=== PATIENT | female | born 1965 | race Caucasian/White ===

== ENCOUNTER 2016-11-08 10:35 | Outpatient (CLI) | payer OTHER ==
[2016-11-08 11:28] LABS: Anion Gap 14 mmol/L (10-20); BUN (Urea Nitrogen) 13 mg/dL (9.8-20.1); Calc. Creatinine Clearance 0 mL/min (70-130); Calcium 9.4 mg/dL (7.8-10.44); Carbon Dioxide 27 mmol/L (22-29); Chloride 106 mmol/L (98-107); Estimated GFR-MDRD 71; Glucose 95 mg/dL (70-105); Potassium 4.8 mmol/L (3.5-5.1); Sodium 142 mmol/L (136-145)
== END 2016-11-08 10:36 | disposition home or self-care (01) ==
LOC: BURLAB 10:35
PROVIDERS: ATTEND Internal Medicine Cardiovascular Disease
DX: E66.01 Morbid (severe) obesity due to excess calories (principal); I48.1 Persistent atrial fibrillation; I10 Essential (primary) hypertension
CPT/HCPCS: 36415; 80048

== ENCOUNTER 2018-11-29 10:09 | Outpatient (CLI) | payer OTHER ==
--- NOTE | 2018-11-30 08:11 | ULT ---
RIGHT LOWER EXTREMITY VENOUS ULTRASOUND 11/29/18 Color duplex Doppler ultrasonography of the deep veins of the right lower extremity was performed. Al l deep veins were freely compressible from groin to ankle. There was no echogenic clot seen. All vein s were freely compressible and there was normal Doppler responses to augmentation maneuvers. IMPRESSION: No evidence of DVT. POS: HOME
== END 2018-11-29 10:10 | disposition home or self-care (01) ==
LOC: BURULT 10:09
PROVIDERS: ATTEND Nurse Practitioner
DX: I80.9 Phlebitis and thrombophlebitis of unspecified site (principal)

== ENCOUNTER 2025-04-16 17:16 | Emergency (ER) | payer OTHER, SELFPAY ==
[2025-04-16 18:20] LABS: #Basophils 0.1 thou/uL (0.0-0.2); #Eosinophils 0.2 thou/uL (0.0-0.7); #Lymphocytes 1.7 thou/uL (1.20-3.40); #Monocytes 0.3 thou/uL (0.11-0.59); #Neutrophils 2.8 thou/uL (1.40-6.50); %Basophils 2.2 % (0.0-1.0); %Eosinophils 3.0 % (0.0-10.0); %Lymphocytes 34.4 % (21.0-51.0); %Monocytes 5.6 % (0.0-10.0); %Neutrophils 54.9 % (42.0-75.0); Hematocrit 39.2 % (36.0-47.0); Hemoglobin 13.4 g/dL (12.0-16.0); Mean Corpuscular Hemoglobin 30.4 pg (27.0-31.0); Mean Corpuscular Volume 88.6 fl (78.0-98.0); Platelet Count 192 10x3/uL (130-400); Red Blood Cell (RBC) Count 4.42 mill/uL (4.20-5.40); White Blood Cell (WBC) Count 5.1 10x3/uL (4.8-10.8)
[2025-04-16] MEDS ORDERED: hydrALAZINE 20 MG/ML VIAL ONE (18:22)
[2025-04-16] MEDS ORDERED: Mag-Al Plus 1200/1200/120 MG (30 mL) UDCUP ONE (18:22)
[2025-04-16] MEDS ORDERED: Lidocaine Viscous Sol 2% 15 ml UD Cup ONE (18:22)
[2025-04-16 18:31] LABS: ALT (SGPT) 24 U/L (Less than 34); AST (SGOT) 39 U/L (11-34); Albumin 4.5 g/dL (3.1-4.5); Alkaline Phosphatase 48 U/L (40-110); Anion Gap 19 mmol/L (10-20); BUN (Urea Nitrogen) 12 mg/dL (9.8-20.1); Bilirubin, Total 2.0 mg/dL (0.3-1.2); Calc. Creatinine Clearance 0 mL/min (70-130); Calcium 9.6 mg/dL (7.8-10.44); Carbon Dioxide 24 mmol/L (22-29); Chloride 100 mmol/L (98-107); Globulin 2.9 g/dL (2.4-3.5); Glucose 99 mg/dL (70-105); Potassium 3.6 mmol/L (3.5-5.1); Sodium 139 mmol/L (136-145)
[2025-04-16 18:32] LABS: Troponin I Less than 0.010 ng/mL (< 0.028)
[2025-04-16] MEDS ORDERED: Sucralfate 1 GM TAB ONE (20:06)
[2025-04-16] MEDS ORDERED: Pantoprazole 40 MG DR.TAB ONE (20:06)
== END 2025-04-16 20:13 | disposition home or self-care (01) ==
LOC: BURERS 17:16
DX: K27.9 Peptic ulcer, site unspecified, unspecified as acute or chronic, without hemorrhage or perforation (principal); E66.9 Obesity, unspecified; I48.91 Unspecified atrial fibrillation; I10 Essential (primary) hypertension; Z87.891 Personal history of nicotine dependence
CPT/HCPCS: 71045; 80053; 84484; 85025; 93005; 96374; J0360

== ENCOUNTER 2025-04-24 11:01 | Emergency (ER) | payer SELFPAY ==
[~2025-04-24 11:01] MED LIST: Iopamidol 370 76% 100 ML VIAL ONE
[2025-04-24 11:48] LABS: #Basophils 0.0 thou/uL (0.0-0.2); #Eosinophils 0.1 thou/uL (0.0-0.7); #Lymphocytes 1.7 thou/uL (1.20-3.40); #Monocytes 0.0 thou/uL (0.11-0.59); #Neutrophils 4.9 thou/uL (1.40-6.50); %Basophils 0.0 % (0.0-1.0); %Eosinophils 1.5 % (0.0-10.0); %Lymphocytes 25.7 % (21.0-51.0); %Monocytes 0.1 % (0.0-10.0); %Neutrophils 72.7 % (42.0-75.0); Hematocrit 40.2 % (36.0-47.0); Hemoglobin 14.1 g/dL (12.0-16.0); Mean Corpuscular Hemoglobin 30.4 pg (27.0-31.0); Mean Corpuscular Volume 86.6 fl (78.0-98.0); Platelet Count 198 10x3/uL (130-400); Red Blood Cell (RBC) Count 4.64 mill/uL (4.20-5.40); White Blood Cell (WBC) Count 6.7 10x3/uL (4.8-10.8)
[2025-04-24 11:59] LABS: INR-International Normal Ratio 1.1; Prothrombin Time 14.3 sec (12.0-14.7)
[2025-04-24 12:00] LABS: PTT 28.0 sec (22.9-36.1)
[2025-04-24 12:08] LABS: ALT (SGPT) 25 U/L (Less than 34); AST (SGOT) 37 U/L (11-34); Albumin 4.5 g/dL (3.1-4.5); Alkaline Phosphatase 48 U/L (40-110); Anion Gap 19 mmol/L (10-20); BUN (Urea Nitrogen) 14 mg/dL (9.8-20.1); Bilirubin, Total 1.8 mg/dL (0.3-1.2); Calc. Creatinine Clearance 0 mL/min (70-130); Calcium 9.7 mg/dL (7.8-10.44); Carbon Dioxide 24 mmol/L (22-29); Chloride 102 mmol/L (98-107); Globulin 2.7 g/dL (2.4-3.5); Glucose 105 mg/dL (70-105); Potassium 5.1 mmol/L (3.5-5.1); Sodium 140 mmol/L (136-145)
[2025-04-24 12:09] LABS: Troponin I 0.071 ng/mL (< 0.028)
[2025-04-24 12:13] LABS: Glucose, Urine (Dipstick) Negative (Negative); Leukocyte Trace (Negative); Protein, Urine (Dipstick) Negative (Neg-Trace); Specific Gravity, Urine 1.010 (1.005-1.030)
[2025-04-24 12:31] LABS: Bacteria/HPF Rare-Few HPF (None Seen); CAUTI Indications for Culture Pelvic or flank pain; RBC/HPF None Seen HPF (0-3); Urine Culture Reflex No No; WBC/HPF 0-3 HPF (0-3)
[2025-04-24] MEDS ORDERED: diphenhydrAMINE 50 MG/ML VIAL ONE (13:15)
== END 2025-04-24 13:41 | disposition short-term general hospital (02) ==
LOC: BURERS 11:01
DX: S00.83XA Contusion of other part of head, initial encounter (principal); I48.20 Chronic atrial fibrillation, unspecified; R79.89 Other specified abnormal findings of blood chemistry; R55 Syncope and collapse; R29.700 NIHSS score 0; I10 Essential (primary) hypertension; W01.198A Fall on same level from slipping, tripping and stumbling with subsequent striking against other object, initial encounter; Z87.891 Personal history of nicotine dependence; Z79.82 Long term (current) use of aspirin; Z79.899 Other long term (current) drug therapy
CPT/HCPCS: 36416; 70450; 70496; 70498; 71045; 80053; 81001; 84484; 85025; 85610; 85730; 93005; 94760; 96374; 96375; J1200; J2919; Q9967

== ENCOUNTER 2025-05-14 15:52 | Outpatient (CLI) | payer OTHER ==
[2025-05-14 16:14] LABS: Prothrombin Time 56.3 sec (12.0-14.7)
[2025-05-14 16:30] LABS: INR-International Normal Ratio 6.4
== END 2025-05-14 15:53 | disposition home or self-care (01) ==
LOC: BURLAB 15:52
PROVIDERS: ATTEND Internal Medicine Cardiovascular Disease
DX: I42.8 Other cardiomyopathies (principal)
CPT/HCPCS: 36415; 85610

== ENCOUNTER 2025-05-16 09:52 | Outpatient (CLI) | payer OTHER ==
[2025-05-16 10:38] LABS: INR-International Normal Ratio 4.5; Prothrombin Time 42.9 sec (12.0-14.7)
== END 2025-05-16 09:53 | disposition home or self-care (01) ==
LOC: BURLAB 09:52
DX: I48.20 Chronic atrial fibrillation, unspecified (principal)
CPT/HCPCS: 36415; 85610

== ENCOUNTER 2025-05-28 14:41 | Outpatient (CLI) | payer OTHER ==
[2025-05-28 15:06] LABS: INR-International Normal Ratio 1.7; Prothrombin Time 19.8 sec (12.0-14.7)
== END 2025-05-28 14:42 | disposition home or self-care (01) ==
LOC: BURLAB 14:41
DX: I48.20 Chronic atrial fibrillation, unspecified (principal)
CPT/HCPCS: 36415; 85610

== ENCOUNTER 2025-06-04 13:38 | Outpatient (CLI) | payer OTHER ==
[2025-06-04 14:05] LABS: INR-International Normal Ratio 1.8; Prothrombin Time 20.9 sec (12.0-14.7)
== END 2025-06-04 13:39 | disposition home or self-care (01) ==
LOC: BURLAB 13:38
DX: I48.20 Chronic atrial fibrillation, unspecified (principal)
CPT/HCPCS: 36415; 85610

== ENCOUNTER 2025-06-11 09:36 | Outpatient (CLI) | payer OTHER ==
[2025-06-11 10:01] LABS: INR-International Normal Ratio 2.1; Prothrombin Time 23.7 sec (12.0-14.7)
== END 2025-06-11 09:37 | disposition home or self-care (01) ==
LOC: BURLAB 09:36
DX: I48.20 Chronic atrial fibrillation, unspecified (principal)
CPT/HCPCS: 36415; 85610

== ENCOUNTER 2025-07-02 16:31 | Outpatient (CLI) | payer OTHER ==
[2025-07-02 16:54] LABS: INR-International Normal Ratio 1.6; Prothrombin Time 19.0 sec (12.0-14.7)
== END 2025-07-02 16:32 | disposition home or self-care (01) ==
LOC: BURLAB 16:31
DX: I48.20 Chronic atrial fibrillation, unspecified (principal)
CPT/HCPCS: 36415; 85610